=== PATIENT | female | born 1970 | race Two or more races ===

== ENCOUNTER 2025-02-20 22:25 | Emergency (ER) | payer BC ==
[~2025-02-20] VITALS: Ht 167.6 cm; Wt 71.2 kg
[2025-02-20] MEDS ORDERED: hydrOXYzine HCL 25 MG TABLET ONE (22:42)
[2025-02-20] MEDS: hydrOXYzine HCL 25 MG TABLET PO ONE (22:45)
[2025-02-20 22:53] LABS: BASOPHILS % (AUTO) 0.2 % (0.0-2.0); HEMATOCRIT 42.4 % (31.2-41.9); HEMOGLOBIN 14.3 g/dL (10.9-14.3); LYMPHOCYTES # (AUTO) 0.7 K/uL (0.8-4.8); LYMPHOCYTES % (AUTO) 9.1 % (20.5-51.5); MEAN CORPUSCULAR HEMOGLOBIN 29.9 uug (24.7-32.8); MEAN CORPUSCULAR HGB CONC 34 g/dL (32.3-35.6); MEAN CORPUSCULAR VOLUME 88.7 fL (75.5-95.3); MONOCYTES # (AUTO) 0.3 K/uL (0.1-1.30); MONOCYTES % (AUTO) 3.6 % (0.0-11.0); NEUTROPHILS # (AUTO) 6.6 K/uL (1.8-8.9); NEUTROPHILS % (AUTO) 87.1 % (38.5-71.5); PLATELET COUNT (AUTO) 257 K/uL (179-408); RED BLOOD CELL COUNT(AUTO) 4.78 MIL/uL (3.63-4.92); RED CELL DISTRIBUTION WIDTH 14.7 % (12.3-17.7); WHITE BLOOD COUNT (AUTO) 7.5 K/uL (3.8-11.8)
[2025-02-20 23:04] LABS: CALCIUM 8.6 mg/dL (8.5-10.1); CREATININE 0.7 mg/dL (0.6-1.3); POTASSIUM 3.6 mmol/L (3.5-5.1)
[2025-02-20 23:10] LABS: BILIRUBIN,TOTAL 0.3 mg/dL (0.2-1.0); C-REACTIVE PROTEIN 0.09 mg/dL (0.00-0.30); MAGNESIUM 2.2 mg/dL (1.8-2.4); TOTAL PROTEIN, SERUM 7.8 g/dL (6.4-8.2)
[2025-02-20] MEDS ORDERED: HYDR-501 PO (23:13)
[2025-02-20] MEDS ORDERED: GUAI-425 PO (23:23)
[2025-02-20 23:38] VITALS: BP 130/72; O2SAT 99
== END 2025-02-20 23:31 | disposition home or self-care (01) ==
LOC: ER 22:25
DX: B34.9 Viral infection, unspecified (principal); R19.7 Diarrhea, unspecified; R05.9 Cough, unspecified; R06.02 Shortness of breath; Z79.899 Other long term (current) drug therapy; Z20.822 Contact with and (suspected) exposure to COVID-19; Z91.018 Allergy to other foods
CPT/HCPCS: 36415; 71045; 83735; 85025; 86140; A4606; A4663

== ENCOUNTER 2025-02-28 15:35 | Emergency (ER) | payer BC ==
[~2025-02-28] VITALS: Ht 167.6 cm; Wt 72.6 kg
[~2025-02-28 15:35] MED LIST: GUAI-425 PO; HYDR-501 PO
[2025-02-28] MEDS: IV NORMAL SALINE 1000 ML BAG IV ONE (16:33)
[2025-02-28 16:37] LABS: CALCIUM 8.2 mg/dL (8.5-10.1); CARBON DIOXIDE 29 mmol/L (21-32); CHLORIDE 108 mmol/L (98-107); GLUCOSE 84 mg/dL (74-106); POTASSIUM 3.6 mmol/L (3.5-5.1); SODIUM SERUM 148 mmol/L (136-145); UREA NITROGEN, BLOOD 20 mg/dL (7-18)
[2025-02-28 16:38] LABS: BASOPHILS % (AUTO) 0.3 % (0.0-2.0); DIFFERENTIAL COMMENT 0; EOSINOPHILS # (AUTO) 0.1 K/uL (0.0-0.7); HEMATOCRIT 39.6 % (31.2-41.9); HEMOGLOBIN 13.2 g/dL (10.9-14.3); LYMPHOCYTES # (AUTO) 2.1 K/uL (0.8-4.8); LYMPHOCYTES % (AUTO) 27.1 % (20.5-51.5); MEAN CORPUSCULAR HEMOGLOBIN 29.5 uug (24.7-32.8); MEAN CORPUSCULAR HGB CONC 33 g/dL (32.3-35.6); MEAN CORPUSCULAR VOLUME 88.4 fL (75.5-95.3); MONOCYTES # (AUTO) 0.6 K/uL (0.1-1.30); MONOCYTES % (AUTO) 7.3 % (0.0-11.0); NEUTROPHILS # (AUTO) 4.8 K/uL (1.8-8.9); NEUTROPHILS % (AUTO) 63.3 % (38.5-71.5); PLATELET COUNT (AUTO) 287 K/uL (179-408); RED BLOOD CELL COUNT(AUTO) 4.48 MIL/uL (3.63-4.92); RED CELL DISTRIBUTION WIDTH 14.3 % (12.3-17.7); WHITE BLOOD COUNT (AUTO) 7.6 K/uL (3.8-11.8)
[2025-02-28] MEDS ORDERED: IOHEXOL 300MG/ML 100 ML INFUS..BTL ONE (16:38)
[2025-02-28 16:43] LABS: ALANINE AMINOTRANSFERASE 83 U/L (14-59); ALBUMIN 3.5 g/dL (3.4-5.0); ALKALINE PHOSPHATASE 68 U/L (50-136); ASPARTATE AMINOTRANSFERASE 38 U/L (15-37); BILIRUBIN,DIRECT 0.2 mg/dL (0.0-0.2); BILIRUBIN,TOTAL 0.9 mg/dL (0.2-1.0); LIPASE 59 U/L (16-77); TOTAL PROTEIN, SERUM 6.7 g/dL (6.4-8.2)
[2025-02-28 16:54] LABS: PREGNANCY TEST SERUM QUAN 1 miul/L (0-6)
[2025-02-28 19:08] VITALS: BP 118/68; TEMP 97.6; O2SAT 99
== END 2025-02-28 19:09 | disposition home or self-care (01) ==
LOC: ER 15:35
DX: R13.10 Dysphagia, unspecified (principal); R10.2 Pelvic and perineal pain; Z98.84 Bariatric surgery status; Z88.8 Allergy status to other drugs, medicaments and biological substances
CPT/HCPCS: 99285; 70491; 96360; 80076; 80048; 83690; 85025; 84484; 84702; 36415; 71260; Q9967; J7040; A4606; A4663

== ENCOUNTER 2025-05-12 03:46 | Emergency (ER) | payer BC ==
[~2025-05-12] VITALS: Ht 167.6 cm; Wt 72.6 kg
[2025-05-12 03:46] VITALS: BP 132/90; O2SAT 98
[2025-05-12] MEDS ORDERED: [UNRECOGNIZED DRUG - OTHER] SUBCUT (04:11)
[2025-05-12 05:06] LABS: PLATELET COUNT (AUTO) 273 K/uL (179-408); RED BLOOD CELL COUNT(AUTO) 4.39 MIL/uL (3.63-4.92); RED CELL DISTRIBUTION WIDTH 13.1 % (12.3-17.7); WHITE BLOOD COUNT (AUTO) 3.6 K/uL (3.8-11.8)
[2025-05-12 05:12] LABS: CREATININE 0.8 mg/dL (0.6-1.3); SODIUM SERUM 144.0 mmol/L (136-145); UREA NITROGEN, BLOOD 11.0 mg/dL (7-18)
[2025-05-12 05:17] LABS: ASPARTATE AMINOTRANSFERASE 32.0 U/L (15-37); TOTAL PROTEIN, SERUM 6.6 g/dL (6.4-8.2)
[2025-05-12 05:47] LABS: *BILIRUBIN,URIN NEGATIVE (NEGATIVE); *CLARITY,URINE CLEAR (CLEAR); *COLOR,URINE YELLOW (YELLOW); *KETONES,URINE NEGATIVE (NEGATIVE); *PROTEIN,URINE NEGATIVE (NEGATIVE); *UROBILINOGEN,URINE 0.2 E.U./dl (NORMAL); LEUKOCYTE ESTERASE ,URINE NEGATIVE (NEGATIVE); NITRITE, URINE NEGATIVE (NEGATIVE); UGLUCOSE NEGATIVE (NEGATIVE)
[2025-05-12 05:48] LABS: *BLOOD, URINE TRACE (NEGATIVE)
[2025-05-12 05:57] LABS: SQUAMOUS EPITHELIAL CELL,UR MODERATE /HPF (NONE SEEN)
[2025-05-12] MEDS ORDERED: BENZ-13 PO (06:44)
[2025-05-12] MEDS ORDERED: AZIT250T PO (06:44)
== END 2025-05-12 07:54 | disposition home or self-care (01) ==
LOC: ER 03:53
DX: R05.9 Cough, unspecified (principal); R50.9 Fever, unspecified; B34.9 Viral infection, unspecified; Z98.82 Breast implant status; K21.9 Gastro-esophageal reflux disease without esophagitis; Z20.822 Contact with and (suspected) exposure to COVID-19
CPT/HCPCS: 36415; 71045; 83605; 85025; 87040; A4606; A4663